=== PATIENT | female | born 1985 ===

== ENCOUNTER → 2017-12-18 | Outpatient (CLI) | payer SELFPAY ==
[2017-12-18 12:42] LABS: Specimen Source CERVIX
[2017-12-19 03:15] LABS: Source Cervix
[2017-12-20 12:59] LABS: HPV Genotype 16 Not Detected (NOTDET); HPV Genotype 18 Not Detected (NOTDET)
[2017-12-24 19:55] LABS: HPV High Risk Other Detected (NOTDET)
== END | disposition home or self-care (01) ==
LOC: OLS 12:40
PROVIDERS: Nurse Practitioner Women's Health
DX: Z11.3 Encounter for screening for infections with a predominantly sexual mode of transmission (principal); Z12.4 Encounter for screening for malignant neoplasm of cervix; L29.8 Other pruritus; Z91.89 Other specified personal risk factors, not elsewhere classified
CPT/HCPCS: 87070; 87205; 87491; 87591; 87624; G0123

== ENCOUNTER → 2017-12-19 | Outpatient (CLI) | payer SELFPAY ==
[2017-12-20 17:48] LABS: HSV II IgG Type Specific Ab Negative (NEG); Herpes Simplex IgM Antibody Positive (NEG)
[2017-12-20 17:55] LABS: HCV Non Reactive (NR)
== END | disposition home or self-care (01) ==
LOC: OLS 13:12
PROVIDERS: Nurse Practitioner Women's Health
DX: Z11.3 Encounter for screening for infections with a predominantly sexual mode of transmission (principal)
CPT/HCPCS: 36415; 86592; 86694; 86695; 86696; 86803; 87340; 87389

== ENCOUNTER → 2018-01-17 | Outpatient (CLI) | payer BC | END | disposition home or self-care (01) | LOC: PLD 12:03 | DX: R87.612 Low grade squamous intraepithelial lesion on cytologic smear of cervix (LGSIL) (principal); R87.810 Cervical high risk human papillomavirus (HPV) DNA test positive | CPT/HCPCS: 88305 ==

== ENCOUNTER → 2019-03-03 | Outpatient (CLI) | payer BC ==
[2019-03-05 15:06] LABS: HPV 16 Negative (Negative); HPV 18 Negative (Negative); HPV OTHER HR TYPES Positive (Negative)
== END | disposition home or self-care (01) ==
LOC: LAB 16:20 → LAB SHORT 16:20
PROVIDERS: Nurse Practitioner Women's Health
DX: Z12.4 Encounter for screening for malignant neoplasm of cervix (principal); N90.89 Other specified noninflammatory disorders of vulva and perineum; Z91.89 Other specified personal risk factors, not elsewhere classified
CPT/HCPCS: 87624; 87625; G0123